=== PATIENT | male | born 1990 ===

== ENCOUNTER 2018-05-16 09:54 | Emergency (ER) | payer SELFPAY ==
[2018-05-16 10:14] VITALS: BMI 30.7
[2018-05-16] MEDS ORDERED: Sodium Chloride 0.9% 1,000 ML IV ONE (11:00)
--- NOTE | 2018-05-16 11:56 | CT ---
PROCEDURE: CT HEAD WITHOUT CONTRAST. HISTORY: headache COMPARISON: None available. TECHNIQUE: Axial computed tomography images were obtained through the head/brain without intravenous contrast. Radiation dose: Total exam DLP = 787.37 mGy-cm. This CT exam was performed using one or more of the following dose reduction techniques: Automated exposure control, adjustment of the mA and/or kV according to patient size, and/or use of iterative reconstruction technique. FINDINGS: HEMORRHAGE: No intracranial hemorrhage. BRAIN: No mass effect or edema. No atrophy or chronic microvascular ischemic changes. VENTRICLES: Unremarkable. No hydrocephalus. CALVARIUM: Unremarkable. PARANASAL SINUSES: Unremarkable as visualized. No significant inflammatory changes. MASTOID AIR CELLS: Unremarkable as visualized. No inflammatory changes. OTHER FINDINGS: None. IMPRESSION: Normal CT of the Head. No intracranial mass, hemorrhage or evidence of acute infarct.
[2018-05-16 11:58] LABS: BASO % 0.7 % (0.0-2.0); EOS % 0.5 % (0.0-4.0); HEMOGLOBIN 14.2 g/dL (12.0-18.0); LYMPH # 1.2 K/uL (1.0-4.3); MEAN CELL VOLUME 91.1 fl (80.0-94.0); MEAN CORPUSCULAR HEMOGLOBIN 30.6 pg (27.0-31.0); MEAN CORPUSCULAR HGB CONC 33.6 g/dL (33.0-37.0); MEAN PLATELET VOLUME 8.6 fl (7.2-11.7); MONO # 0.4 K/uL (0.0-0.8); MONO % 9.9 % (0.0-10.0); NEUT # 2.5 K/uL (1.8-7.0); NEUT % 59.9 % (50.0-75.0); NRBC % 0.2 % (0.0-0.0); RBC 4.64 Mil/uL (4.40-5.90); RED CELL DISTRIBUTION WIDTH 14.3 % (11.5-14.5); WHITE BLOOD COUNT 4.2 K/uL (4.8-10.8)
--- NOTE | 2018-05-16 12:14 | ED PDOC ---
HPI: Headache Time Seen by Provider: 05/16/18 10:39 Chief Complaint (Nursing): Dizziness/Lightheaded Chief Complaint (Provider): Dizziness, Headache History Per: Patient History/Exam Limitations: no limitations Onset/Duration Of Symptoms: Days (x3) Current Symptoms Are (Timing): Still Present Pain Scale Rating Of: 6 Associated Symptoms: denies: Photophobia, Blurred Vision, Nausea, Vomiting, Extremity Weakness Additional Complaint(s): Jacinto Wright is a 28 year old male, with no significant past medical history , who presents to the emergency department for evaluation of dizziness and bitemporal headache onset for x3 days. 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 Patient states 6 months ago he had an episode of similar symptoms. He was evaluated at that time and was told he had high blood pressure and he was prescribed a supply 10mg Lisinopril to take daily. Patient states he ran out of the medication 6 weeks ago and hasn't taken it since. Patient is unsure if this is contributing to his symptoms and is requesting a refill. He denies any fever, chills, neck pain or stiffness, nausea, vomit, diarrhea, photophobia, phonophobia, weakness, numbness, changes in vision, abdominal pain, chest pain or shortness of breath. No further medical complaints. PMD: None provided. Past Medical History Reviewed: Historical Data, Nursing Documentation, Vital Signs Vital Signs: Last Vital Signs Temp 98.3 F 05/16/18 10:13 Pulse 60 05/16/18 10:13 Resp 16 05/16/18 10:13 BP 115/80 05/16/18 10:13 Pulse Ox 100 05/16/18 10:13 - Medical History PMH: HTN (?) - Surgical History Surgical History: No Surg Hx - Family History Family History: States: Unknown Family Hx - Social History Current smoker - smoking cessation education provided: No Alcohol: Social Drugs: Denies - Home Medications Home Medications: Ambulatory Orders Medication Instructions Recorded Meclizine [Meclizine*] 25 mg PO Q6 PRN #12 tab 05/16/18 Naproxen [Naprosyn] 500 mg PO BID PRN #20 tablet 05/16/18 - Allergies Allergies/Adverse Reactions: Allergies Allergy/AdvReac Type Severity Reaction Status Date / Time No Known Allergies Allergy Verified 05/16/18 10:17 Review of Systems ROS Statement: Except As Marked, All Systems Reviewed And Found Negative Constitutional: Negative for: Fever, Chills Cardiovascular: Negative for: Chest Pain Respiratory: Negative for: Shortness of Breath Gastrointestinal: Negative for: Nausea, Vomiting, Abdominal Pain, Diarrhea Musculoskeletal: Negative for: Neck Pain Neurological: Positive for: Headache, Dizziness. Negative for: Weakness, Numbness Physical Exam - Reviewed Nursing Documentation Reviewed: Yes Vital Signs Reviewed: Yes - Physical Exam Comments: GENERAL APPEARANCE: Patient is awake, alert, oriented x 3, in no acute distress. Resting comfortably, on cell phone. SKIN: Warm, dry; (-) cyanosis; (-) rash. HEAD: (-) scalp swelling or tenderness, (-) temporal artery tenderness. EYES: (-) conjunctival pallor, (-) scleral icterus. ENMT: TMs: (-) bulging (-) erythema. Pharynx clear (-) erythema (-) exudate, uvula midline. (-) sinus tenderness; mucous membranes are moist. Nares patent, ( -) rhinorrhea NECK: Supple, FROM (-) tenderness, (-) stiffness, (-) meningismus, (-) lymphadenopathy. CHEST AND RESPIRATORY: (-) rales, (-) rhonchi, (-) wheezes; breath sounds equal bilaterally. Speaking in full sentences, respirations even and nonlabored. HEART AND CARDIOVASCULAR: (-) irregularity; (-) murmur, (-) gallop. ABDOMEN AND GI: Soft; (-) tenderness (-) guarding (-) distention. EXTREMITIES: (-) deformity. NEURO AND PSYCH: Mental status as above. 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 Strength symmetric. Gait steady, speech clear. - Laboratory Results Result Diagrams: 05/16/18 11:40 05/16/18 11:40 - ECG O2 Sat by Pulse Oximetry: 100 (RA) Pulse Ox Interpretation: Normal Medical Decision Making Medical Decision Making: Time: 10:39 Initial Impression: headache, concern for elevated BP Initial Plan: --IV access --Head w/o contrast [CT] --EKG --CMP --CBC w/ differential --Antivert 25 mg PO --Sodium Chloride 1,000 ml IV 1,000 mls/hr --Toradol 30 mg IVP --Reevaluation 1210 CT reviewed, radiology report follows PROCEDURE: CT HEAD WITHOUT CONTRAST. HISTORY: headache COMPARISON: None available. TECHNIQUE: Axial computed tomography images were obtained through the head/brain without intravenous contrast. Radiation dose: Total exam DLP = 787.37 mGy-cm. This CT exam was performed using one or more of the following dose reduction techniques: Automated exposure control, adjustment of the mA and/or kV according to patient size, and/or use of iterative reconstruction technique. FINDINGS: HEMORRHAGE: No intracranial hemorrhage. BRAIN: No mass effect or edema. No atrophy or chronic microvascular ischemic changes. VENTRICLES: Unremarkable. No hydrocephalus. CALVARIUM: Unremarkable. PARANASAL SINUSES: Unremarkable as visualized. No significant inflammatory changes. MASTOID AIR CELLS: Unremarkable as visualized. No inflammatory changes. OTHER FINDINGS: None. IMPRESSION: Normal CT of the Head. No intracranial mass, hemorrhage or evidence of acute infarct. 1225 EKG: NSR @ 77bpm (-) ST elevations, QTc 425 Labs reviewed and grossly unremarkable. No evidence of elevated BP throughout ED evaluation On re-evaluation, patient reports improvement of symptoms, denies any headache or dizziness. On exam, patient remains AAOx3, in no acute distress. Lungs clear to auscultation, cardiac RRR, abdomen soft, non-tender, repeat neuro exam shows no focal findings. VSS, stable for discharge. Lab/Diagnostic results d/w the patient in great detail. Diagnosis of headache, dizziness d/w the patient. Based on history, exam and diagnostic results, plan will be for outpatient follow up. Patient instructed to follow-up with pmd / referral provided / the clinic in 1- 2 days without fail. Advised to take medication as prescribed. Return to the emergency room at any time for any new or worsening symptoms. Patient states he fully agrees with and understands discharge instructions. States that he agrees with the plan and disposition. Verbalized and repeated discharge instructions and plan. I have given the patient opportunity to ask any additional questions. ----- Scribe Attestation: Documented by Severino Do, acting as a scribe for Harini Brown PA-C. Provider Scribe Attestation: All medical record entries made by the Scribe were at my direction and personally dictated by me. I have reviewed the chart and agree that the record accurately reflects my personal performance of the history, physical exam, medical decision making, and the department course for this patient. I have also personally directed, reviewed, and agree with the discharge instructions and disposition. Disposition - Clinical Impression Clinical Impression: Headache, Dizziness - Patient ED Disposition Is Patient to be Admitted: No Counseled Patient/Family Regarding: Studies Performed, Diagnosis, Need For Followup, Rx Given - Disposition Referrals: [facility] [Outside] Disposition: Routine/Home Disposition Time: 12:28 Condition: STABLE Additional Instructions: FOLLOW UP WITH CLINIC FOR FURTHER EVALUATION. RETURN TO ED WITH ANY NEW OR WORSENING SYMPTOMS. Prescriptions: Meclizine [Meclizine*] 25 mg PO Q6 PRN #12 tab PRN Reason: Dizziness Naproxen [Naprosyn] 500 mg PO BID PRN #20 tablet PRN Reason: Headache Instructions: Tension Headache, Dizziness, Nonvertigo, (DC) Forms: [facility] (Czech) Print Language: TURKMEN - POA Present On Arrival: None Results - Lab Results Lab Results: 05/16/18 05/16/18 11:40 11:40 WBC 4.2 L RBC 4.64 Hgb 14.2 Hct 42.2 MCV 91.1 MCH 30.6 MCHC 33.6 RDW 14.3 Plt Count 121 L MPV 8.6 Neut % (Auto) 59.9 Lymph % (Auto) 29.0 [place] % (Auto) 9.9 Eos % (Auto) 0.5 Baso % (Auto) 0.7 Neut # (Auto) 2.5 Lymph # (Auto) 1.2 [place] # (Auto) 0.4 Eos # (Auto) 0.0 Baso # (Auto) 0.0 Sodium 141 Potassium 4.0 Chloride 103 Carbon Dioxide 24 Anion Gap 18 BUN 20 Creatinine 0.8 Est GFR ( Amer) > 60 Est GFR (Non-Af Amer) > 60 Random Glucose 113 H Calcium 9.4
[2018-05-16 12:16] LABS: BLOOD UREA NITROGEN 20 mg/dl (9-20); CALCIUM 9.4 mg/dL (8.4-10.2); GFR AFRICAN-AMERICAN > 60; GFR NON-AFRICAN AMERICAN > 60
[2018-05-16 13:33] VITALS: BP 126/78; PULSE 78; RESP 19; TEMP 97
--- NOTE | 2018-05-16 13:41 | CARD ---
APPROVED REPORT EKG Measurement Heart [id number] <Conclusion> Normal sinus rhythm Normal ECG
[2018-05-16 14:21] VITALS: O2SAT 100
== END 2018-05-16 13:34 | disposition home or self-care (01) ==
LOC: H.ER 09:54
DX: R42 Dizziness and giddiness (principal); R51 Headache; I10 Essential (primary) hypertension
CPT/HCPCS: 70450; 80048; 85025; 93005; 96374; 96375; 99284; J1885; J2765; J7030

== ENCOUNTER 2018-09-17 21:00 | Emergency (ER) | payer BC, OTHER ==
[2018-09-17 21:01] VITALS: BMI 30.7
[2018-09-17 21:18] VITALS: TEMP 98.4
[2018-09-17 23:01] VITALS: PULSE 73; O2SAT 99
[2018-09-17] MEDS ORDERED: Sodium Chloride 0.9% 1,000 ML IV STA (23:04)
--- NOTE | 2018-09-17 23:26 | ED PDOC ---
HPI: Headache Time Seen by Provider: 09/17/18 22:00 Chief Complaint (Nursing): Headache Chief Complaint (Provider): Headache, Nausea, Pressure in ears History Per: Patient History/Exam Limitations: no limitations Onset/Duration Of Symptoms: Hrs Current Symptoms Are (Timing): Better Additional Complaint(s): 28 year old male with a history of anxiety presents to the ER for an evaluation of headache, nausea, pressure in both ears for one day. Patient reports of numbness on the back of his head. He states he ran out of alprazolam for anxiety three days ago. Patient had his last drink alcohol on Sunday and prior to that, he quit six months ago. He states the headache and pain has subsided. Denies diarrhea, vomiting or fever. PMD: Non [facility] Provider ([place], [place]) Past Medical History Reviewed: Historical Data, Nursing Documentation, Vital Signs Vital Signs: Last Vital Signs Temp 98.4 F 09/17/18 21:17 Pulse 73 09/17/18 22:40 Resp 12 09/17/18 22:40 BP 118/72 09/17/18 22:40 Pulse Ox 99 09/17/18 22:40 - Medical History PMH: Anxiety, HTN (?) - Surgical History Surgical History: No Surg Hx - Family History Family History: States: Unknown Family Hx - Social History Current smoker - smoking cessation education provided: No Alcohol: Other (patient states his last drink was on Sunday and prior to that he quit six months ago) Drugs: Denies - Home Medications Home Medications: Ambulatory Orders Medication Instructions Recorded Naproxen [Naprosyn] 500 mg PO BID PRN #20 tablet 05/16/18 RX: Meclizine [Meclizine*] 25 mg PO Q6 PRN #12 tab 05/16/18 - Allergies Allergies/Adverse Reactions: Allergies Allergy/AdvReac Type Severity Reaction Status Date / Time No Known Allergies Allergy Verified 09/17/18 21:15 Review of Systems ROS Statement: Except As Marked, All Systems Reviewed And Found Negative Constitutional: Negative for: Fever ENT: Positive for: Ear Pain Gastrointestinal: Positive for: Nausea. Negative for: Vomiting, Diarrhea Neurological: Positive for: Numbness, Headache Physical Exam - Reviewed Nursing Documentation Reviewed: Yes Vital Signs Reviewed: Yes - Physical Exam Appears: Positive for: Non-toxic, No Acute Distress Head Exam: Positive for: ATRAUMATIC, NORMAL INSPECTION, NORMOCEPHALIC Skin: Positive for: Normal Color, Warm, Dry Eye Exam: Positive for: EOMI, Normal appearance, PERRL ENT: Positive for: Normal ENT Inspection (ears bilaterally clear), TM Is/Are (clear). Negative for: Pharyngeal Erythema Neck: Positive for: Normal, Painless ROM, Supple. Negative for: Decreased ROM Cardiovascular/Chest: Positive for: Regular Rate, Rhythm. Negative for: Murmur Respiratory: Positive for: Normal Breath Sounds. Negative for: Decreased Breath Sounds, Wheezing, Respiratory Distress Gastrointestinal/Abdominal: Positive for: Normal Exam, Soft. Negative for: Tenderness, Guarding, Rebound Back: Positive for: Normal Inspection Extremity: Positive for: Normal ROM. Negative for: Tenderness, Pedal Edema, Deformity Neurologic/Psych: Positive for: Alert, Oriented (x3). Negative for: Motor/Sensory Deficits - Laboratory Results Result Diagrams: 09/17/18 23:40 09/17/18 23:40 - ECG O2 Sat by Pulse Oximetry: 99 (RA) Pulse Ox Interpretation: Normal Medical Decision Making Medical Decision Making: Time: 2304 Initial Plan: headache, resolved, anxiety, resolved CMP CBC w/ Differential Normal Saline 1000 mls/hr Zofran 4mg Reevaluation Patient will be going home after repletion of potassium. pt aware of results, stable vitals. states he feels fine. stable for dc. Scribe Attestation: Documented by Maxine Holley, acting as a scribe for Renita Peña MD Provider Scribe Attestation: All medical record entries made by the Scribe were at my direction and personally dictated by me. I have reviewed the chart and agree that the record accurately reflects my personal performance of the history, physical exam, medical decision making, and the department course for this patient. I have also personally directed, reviewed, and agree with the discharge instructions and disposition. Disposition - Clinical Impression Clinical Impression: Headache, Hypokalemia - Patient ED Disposition Is Patient to be Admitted: No Counseled Patient/Family Regarding: Studies Performed, Diagnosis, Need For Followup - Disposition Disposition: Routine/Home Disposition Time: 01:00 Condition: IMPROVED Additional Instructions: follow up with your doctor in 1-2 days return to the ED with any worsening or concerning symptoms Instructions: Hypokalemia (DC), Headache, Adult (DC) Forms: [employer] (Belgian)
[2018-09-18 00:01] LABS: BASO % 0.3 % (0.0-2.0); EOS % 0.2 % (0.0-4.0); HEMOGLOBIN 14.1 g/dL (12.0-18.0); LYMPH % 29.9 % (20.0-40.0); MEAN CELL VOLUME 87.8 fl (80.0-94.0); MEAN CORPUSCULAR HEMOGLOBIN 29.6 pg (27.0-31.0); MEAN CORPUSCULAR HGB CONC 33.7 g/dL (33.0-37.0); MEAN PLATELET VOLUME 8.8 fl (7.2-11.7); MONO # 0.5 K/uL (0.0-0.8); NEUT # 4.2 K/uL (1.8-7.0); NEUT % 62.6 % (50.0-75.0); NRBC % 0.1 % (0.0-0.0); RBC 4.78 Mil/uL (4.40-5.90); RED CELL DISTRIBUTION WIDTH 14.1 % (11.5-14.5); WHITE BLOOD COUNT 6.8 K/uL (4.8-10.8)
[2018-09-18 00:16] LABS: ALB/GLOB RATIO 1.1 (1.0-2.1); ALBUMIN 4.6 g/dL (3.5-5.0); ALT/SGPT 52 U/L (21-72); AST/SGOT 50 U/L (17-59); BLOOD UREA NITROGEN 14 mg/dl (9-20); CALCIUM 9.5 mg/dL (8.4-10.2); GFR NON-AFRICAN AMERICAN > 60
[2018-09-18] MEDS ORDERED: Potassium Chloride 20 mEq ER Tab PO ONE ×2 (00:30→00:52)
[2018-09-18 03:02] VITALS: BP 115/69; RESP 14
== END 2018-09-18 01:10 | disposition home or self-care (01) ==
LOC: H.ER 21:00
DX: R51 Headache (principal); E87.6 Hypokalemia; I10 Essential (primary) hypertension; F41.9 Anxiety disorder, unspecified
CPT/HCPCS: 80053; 82948; 85025; 96374; 99285; J2405; J7030

== ENCOUNTER 2019-01-14 04:58 | Emergency (ER) | payer SELFPAY ==
[2019-01-14 04:58] VITALS: BMI 30.7
[2019-01-14 05:16] VITALS: RESP 16
[2019-01-14] MEDS ORDERED: Multivitamin (MVI) 10 ML, Folic Acid 1 MG, Thiamine 100 MG in Dextrose 5%/0.45% NS 1,00... IV ONE (05:35)
--- NOTE | 2019-01-14 05:57 | ED PDOC ---
HPI: Headache Time Seen by Provider: 01/14/19 05:00 Chief Complaint (Nursing): Headache Chief Complaint (Provider): Headache History Per: Patient History/Exam Limitations: no limitations Onset/Duration Of Symptoms: Days (4) Current Symptoms Are (Timing): Still Present Additional Complaint(s): 28 year old male with a past medical history of alcohol abuse presents to the ED complaining of headache and anxiety onset for 4 days. Patient was sober for one year, however he started to drink again on Sunday. He drank last night as well. Today, the patient reports he feels shaky with a headache associated with generalized sense of anxiety. Patient reports he had a similar episode in the past with alcohol withdrawal. PMD: Dr. Rojas Past Medical History Reviewed: Historical Data, Nursing Documentation, Vital Signs Vital Signs: Last Vital Signs Temp 98.2 F 01/14/19 05:12 Pulse 106 H 01/14/19 05:12 Resp 16 01/14/19 05:12 BP 160/97 H 01/14/19 05:12 Pulse Ox 95 01/14/19 05:12 - Medical History PMH: Anxiety, HTN (?) - Family History Family History: States: Unknown Family Hx - Social History Current smoker - smoking cessation education provided: No Alcohol: Occasional Drugs: Denies - Home Medications Home Medications: Ambulatory Orders Medication Instructions Recorded Meclizine [Meclizine*] 25 mg PO Q6 PRN #12 tab 05/16/18 Naproxen [Naprosyn] 500 mg PO BID PRN #20 tablet 05/16/18 chlordiazePOXIDE [Chlordiazepoxide 25 mg PO Q6 PRN #10 cap 01/14/19 HCl] - Allergies Allergies/Adverse Reactions: Allergies Allergy/AdvReac Type Severity Reaction Status Date / Time No Known Allergies Allergy Verified 09/17/18 21:15 Review of Systems ROS Statement: Except As Marked, All Systems Reviewed And Found Negative Neurological: Positive for: Headache Psych: Positive for: Anxiety. Negative for: Suicidal ideation, Other (homicidal ideation) Physical Exam - Reviewed Nursing Documentation Reviewed: Yes Vital Signs Reviewed: Yes - Physical Exam Appears: Positive for: Non-toxic, No Acute Distress Head Exam: Positive for: ATRAUMATIC, NORMAL INSPECTION, NORMOCEPHALIC Skin: Positive for: Normal Color, Warm, Dry. Negative for: Rash Eye Exam: Positive for: EOMI, Normal appearance, PERRL ENT: Positive for: Normal ENT Inspection Neck: Positive for: Normal, Painless ROM Cardiovascular/Chest: Positive for: Tachycardia Respiratory: Positive for: Normal Breath Sounds. Negative for: Decreased Breath Sounds, Respiratory Distress Gastrointestinal/Abdominal: Positive for: Normal Exam, Soft Back: Positive for: Normal Inspection Extremity: Positive for: Normal ROM. Negative for: Tenderness, Pedal Edema, Deformity Neurologic/Psych: Positive for: Alert, Oriented (x3), Mood/Affect (anxious). Negative for: Motor/Sensory Deficits - Laboratory Results Result Diagrams: 01/14/19 05:18 01/14/19 05:18 - ECG O2 Sat by Pulse Oximetry: 95 (RA) Pulse Ox Interpretation: Normal Medical Decision Making Medical Decision Makin:34 Impression: 28 year old male presenting with mild alcohol withdrawal. Plan: --EKG --Alcohol serum --CMP --Drug screen --Dextrose 5%/0.45% NS 1000 ml MVI 10ml Folic Acid 1 mg Thiamine 100 IV 250 mls/hr --Librium 25mg --Heplock insertion --Accucheck --Urinalysis --Reevaluation 06:36 Patient diagnosed with mild alcohol withdrawal. Upon provider reevaluation patient is feeling better, is medically stable, and requires no further treatment in the ED at this time. Patient will be discharged home. Counseling was provided and all questions were answered regarding diagnosis. There is agreement to discharge plan. Return if symptoms persist or worsen. Scribe Attestation: Documented by Maxine Holley, acting as a scribe for Tho Dang MD Provider Scribe Attestation: All medical record entries made by the Scribe were at my direction and personally dictated by me. I have reviewed the chart and agree that the record accurately reflects my personal performance of the history, physical exam, medical decision making, and the department course for this patient. I have also personally directed, reviewed, and agree with the discharge instructions and disposition. Disposition - Clinical Impression Clinical Impression: Alcohol withdrawal - Patient ED Disposition Is Patient to be Admitted: No - Disposition Disposition: Routine/Home Disposition Time: 06:36 Condition: STABLE Prescriptions: chlordiazePOXIDE [Chlordiazepoxide HCl] 25 mg PO Q6 PRN #10 cap PRN Reason: anxiety/shakiness Instructions: Alcohol Withdrawal Forms: [facility] (Tongan) Print Language: DIVEHI
[2019-01-14 06:19] LABS: BASO % 0.6 % (0.0-2.0); EOS % 0.4 % (0.0-4.0); HEMOGLOBIN 16.6 g/dL (12.0-18.0); LYMPH # 2.1 K/uL (1.0-4.3); LYMPH % 42.7 % (20.0-40.0); MEAN CELL VOLUME 88.1 fl (80.0-94.0); MEAN CORPUSCULAR HEMOGLOBIN 30.5 pg (27.0-31.0); MEAN CORPUSCULAR HGB CONC 34.6 g/dL (33.0-37.0); MEAN PLATELET VOLUME 7.9 fl (7.2-11.7); MONO # 0.4 K/uL (0.0-0.8); MONO % 7.5 % (0.0-10.0); NEUT # 2.4 K/uL (1.8-7.0); NEUT % 48.8 % (50.0-75.0); NRBC % 0.2 % (0.0-0.0); RBC 5.43 Mil/uL (4.40-5.90); RED CELL DISTRIBUTION WIDTH 15.6 % (11.5-14.5)
[2019-01-14 06:33] LABS: ALBUMIN 5.1 g/dL (3.5-5.0); ALT/SGPT 65 U/L (21-72); AST/SGOT 81 U/L (17-59); BLOOD UREA NITROGEN 10 mg/dl (9-20); CALCIUM 9.6 mg/dL (8.4-10.2); GFR NON-AFRICAN AMERICAN > 60
[2019-01-14 07:04] VITALS: BP 138/78; PULSE 88; TEMP 98; O2SAT 99
--- NOTE | 2019-01-14 10:47 | CARD ---
APPROVED REPORT Date of service: 01/14/2019 EKG Measurement Heart [id number] <Conclusion> Normal sinus rhythm Normal ECG
== END 2019-01-14 07:04 | disposition home or self-care (01) ==
LOC: H.ER 04:58
DX: F10.239 Alcohol dependence with withdrawal, unspecified (principal); I10 Essential (primary) hypertension
CPT/HCPCS: 80053; 82948; 85025; 93005; 99285; G0480; J3411; J7042